=== PATIENT | female | born 1985 | race Caucasian/White ===

== ENCOUNTER 2018-01-07 05:19 | Inpatient (IN) | payer OTHER ==
[~2018-01-07] VITALS: Ht 170.2 cm; Wt 128.5 kg
[2018-01-07] VITALS (9 sets, daily range): BP systolic 92–123; BP diastolic 49–84; PULSE 67–80; TEMP 97.5–98.8
[2018-01-08 07:14] VITALS: BP 128/71; PULSE 61; TEMP 97.6
[2018-01-08] MEDS ORDERED: IBU600 MG PO (09:19)
[2018-01-08] MEDS ORDERED: DILAUDID 2MG TAB2 MG PO (09:19)
== END 2018-01-08 10:00 | disposition home or self-care (01) | DRG 742 ==
LOC: SDCO 05:19 → OB 09:04
PROVIDERS: Obstetrics & Gynecology
PROC: 0UTC4ZZ Resection of Cervix, Percutaneous Endoscopic Approach (ICD-10-PCS; 2018-01-07)
PROC: 0UT9FZZ Resection of Uterus, Via Natural or Artificial Opening With Percutaneous Endoscopic Assistance (ICD-10-PCS; principal; 2018-01-07 07:30)
PROC: 0UT7FZZ Resection of Bilateral Fallopian Tubes, Via Natural or Artificial Opening With Percutaneous Endoscopic Assistance (ICD-10-PCS; 2018-01-07 07:30)
DX: N92.0 Excessive and frequent menstruation with regular cycle (principal); Z68.41 Body mass index [BMI] 40.0-44.9, adult; N94.6 Dysmenorrhea, unspecified; E66.01 Morbid (severe) obesity due to excess calories
CPT/HCPCS: A4314; J0690; J1100; J1170; J1885; J2270; J2405; J2704; J2765; J3010; J7120

== ENCOUNTER → 2018-02-17 | Outpatient (CLI) | payer OTHER ==
[~2018-02-17] VITALS: Ht 170.2 cm; Wt 130.6 kg
[~2018-02-17] MED LIST: ADIPEX-P37.5 MG PO; BACTRIM DS 8001 TAB; DILAUDID 2MG TAB2 MG PO; IBU600 MG PO; MULTIPLE VITAMI1 TA5 PO
[2018-02-17 14:23] VITALS: BP 100/60; PULSE 64
== END ==
LOC: LIGHT 14:16
DX: G47.33 Obstructive sleep apnea (adult) (pediatric) (principal); E16.1 Other hypoglycemia; E28.2 Polycystic ovarian syndrome; E66.01 Morbid (severe) obesity due to excess calories; Z68.42 Body mass index [BMI] 45.0-49.9, adult; Z71.3 Dietary counseling and surveillance
CPT/HCPCS: G0463

== ENCOUNTER → 2018-02-24 | Outpatient (CLI) | payer OTHER | LOC: BHSO 08:59 | DX: Z01.818 Encounter for other preprocedural examination (principal) ==

== ENCOUNTER → 2018-03-09 | Outpatient (CLI) | payer OTHER ==
[~2018-03-09] VITALS: Ht 170.2 cm; Wt 130.2 kg
[2018-03-09 15:07] VITALS: BP 106/66; PULSE 80
== END ==
LOC: LIGHT 09:27
DX: Z09 Encounter for follow-up examination after completed treatment for conditions other than malignant neoplasm (principal); E66.01 Morbid (severe) obesity due to excess calories; Z68.41 Body mass index [BMI] 40.0-44.9, adult
CPT/HCPCS: G0463

== ENCOUNTER → 2018-03-24 | Outpatient (CLI) | payer OTHER | LOC: LIGHT 14:29 | DX: Z09 Encounter for follow-up examination after completed treatment for conditions other than malignant neoplasm (principal) ==

== ENCOUNTER → 2018-04-01 | Outpatient (CLI) | payer OTHER ==
[~2018-04-01] VITALS: Ht 170.2 cm; Wt 128.8 kg
== END ==
LOC: LIGHT 14:52
DX: Z09 Encounter for follow-up examination after completed treatment for conditions other than malignant neoplasm (principal)